=== PATIENT | female | born 1990 | race American Indian/Alaskan Native ===

== ENCOUNTER 2019-05-07 18:51 | Emergency (ER) | payer MEDICAID | END 2019-05-07 19:00 | disposition left against medical advice (07) | LOC: ED 18:51 | DX: N93.9 Abnormal uterine and vaginal bleeding, unspecified (principal); Z53.21 Procedure and treatment not carried out due to patient leaving prior to being seen by health care provider ==

== ENCOUNTER 2019-05-08 09:16 | Emergency (ER) | payer MEDICAID ==
[2019-05-08 09:27] VITALS: BP 132/79
[2019-05-08] MEDS ORDERED: SODIUM CHLORIDE 0.9% 1000 ML 1,000 ML IV ONE (09:49)
[2019-05-08] MEDS ORDERED: ACETAMINOPHEN 325 MG TAB PO ONE (09:49)
--- NOTE | 2019-05-08 09:55 | Emergency Department Report ---
ED Female HPI - General Chief complaint: Vaginal Bleeding Stated complaint: 8WKS HEAVY BLEEDING/CRAMPS Time Seen by Provider: 05/08/19 09:36 Source: patient Mode of arrival: Ambulatory Limitations: No Limitations - History of Present Illness Initial comments: Patient complains of vaginal spotting which started yesterday. She also complained of left lower quadrant abdominal cramping. She has a history of ectopic which was treated with surgery in 2002. 5, para 2, 1 and 1 ectopic . She denies any other past medical history. She denies nausea, vomiting, diarrhea, fever or chills. She also denies chest pain or shortness of breath. She sexually active with one partner and denies any history of sexually transmitted infection. Patient said she is about 8 weeks . MD Complaint: vaginal bleeding -: Sudden (yesterday) Location: perineum Radiation: LLQ Severity: mild Severity scale (0 -10): 2 Quality: cramping Consistency: constant Improves with: none Worsens with: none Are you Now?: Yes (8 weeks .) Associated Symptoms: vaginal bleeding - Related Data Sexually active: Yes : 5 Para: 2 A: 2 Previous Rx's Medication Instructions Recorded Last Taken Type Acetaminophen [Tylenol] 500 mg PO Q6HR PRN #20 tablet 05/08/19 Unknown Rx Allergies Allergy/AdvReac Type Severity Reaction Status Date / Time No Known Allergies Allergy Unverified 05/08/19 09:23 ED Review of Systems ROS: Stated complaint: 8WKS HEAVY BLEEDING/CRAMPS Other details as noted in HPI Comment: All other systems reviewed and negative Constitutional: denies: chills, fever Eyes: denies: eye pain, eye discharge, vision change ENT: denies: ear pain, throat pain Respiratory: denies: cough, shortness of breath, wheezing Cardiovascular: denies: chest pain, palpitations Endocrine: no symptoms reported Gastrointestinal: abdominal pain (LLQ). denies: nausea, diarrhea Genitourinary: other (Vaginal spotting.). denies: urgency, dysuria, discharge Musculoskeletal: denies: back pain, joint swelling, arthralgia Skin: denies: rash, lesions Neurological: denies: headache, weakness, paresthesias Psychiatric: denies: anxiety, depression Hematological/Lymphatic: denies: easy bleeding, easy bruising ED Past Medical Hx - Past Medical History Previous Medical History?: No - Surgical History Additional Surgical History: ecotopic - Social History Smoking Status: Never Smoker Substance Use Type: None - Medications Home Medications: Home Medications Medication Instructions Recorded Confirmed Last Taken Type Acetaminophen [Tylenol] 500 mg PO Q6HR PRN #20 tablet 05/08/19 Unknown Rx ED Physical Exam - General Limitations: No Limitations General appearance: alert, in no apparent distress - Head Head exam: Present: atraumatic, normocephalic - Eye Eye exam: Present: normal appearance, PERRL - ENT ENT exam: Present: normal exam, normal orophraynx, mucous membranes moist - Neck Neck exam: Present: normal inspection - Respiratory Respiratory exam: Present: normal lung sounds bilaterally. Absent: respiratory distress - Cardiovascular Cardiovascular Exam: Present: regular rate, normal rhythm. Absent: systolic murmur, diastolic murmur, rubs, gallop - GI/Abdominal GI/Abdominal exam: Present: soft, tenderness (Mild LLQ tenderness to palpation.), normal bowel sounds. Absent: guarding, rebound - Rectal Rectal exam: Present: deferred - External exam: Present: normal external exam, bleeding. Absent: lacerations Speculum exam: Present: vaginal bleeding. Absent: vaginal discharge, foreign body, tissue, laceration Bi-manual exam: Present: adnexal tenderness (left adnexal tenderness.), other (radha carrillo was Ms. Malick RN..). Absent: cervical motion tendernes, adnexal mass, uterine enlargement, uterine tenderness - Extremities Exam Extremities exam: Present: normal inspection - Back Exam Back exam: Present: normal inspection - Neurological Exam Neurological exam: Present: alert, oriented X3 - Psychiatric Psychiatric exam: Present: normal affect, normal mood - Skin Skin exam: Present: warm, dry, intact, normal color. Absent: rash ED Course Vital Signs 05/08/19 09:23 Temperature 98.2 F Pulse Rate 74 Respiratory 18 Rate Blood Pressure 132/79 O2 Sat by Pulse 100 Oximetry - Reevaluation(s) Reevaluation #1: 05/08/19 14:01 Patient has no new complaints I explained her lab results and ultrasound results and the need for her to follow up with Dr. David Hinojosa [facility] tomorrow robin harding for the repeat of her beta HCG quantitative. I also advised her to return to the emergency room on Thursday which in in 2 days time if she is unable to follow up with an [facility] for a repeat of beta-HCG quantitative. - Consultations Consultation #1: 05/08/19 13:59 I called and spoke with the [facility] on-call Dr. David Hinojosa. he recommended discharging patient home to follow-up with him in his [facility] clinic tomorrow and he will follow-up on repeating her beta quantitative in his office tomorrow. ED Medical Decision Making - Lab Data Result diagrams: 05/08/19 09:56 05/08/19 11:36 Lab Results 05/08/19 05/08/19 05/08/19 Range/Units 09:56 09:56 09:56 WBC 10.9 (4.5-11.0) K/mm3 RBC 4.63 (3.65-5.03) M/mm3 Hgb 12.0 (10.1-14.3) gm/dl Hct 36.3 (30.3-42.9) % MCV 79 (79-97) fl MCH 26 L (28-32) pg MCHC 33 (30-34) % RDW 15.6 H (13.2-15.2) % Plt Count 270 (140-440) K/mm3 Lymph % (Auto) 28.4 (13.4-35.0) % [place] % (Auto) 5.2 (0.0-7.3) % Eos % (Auto) 2.1 (0.0-4.3) % Baso % (Auto) 0.5 (0.0-1.8) % Lymph # 3.1 (1.2-5.4) K/mm3 [place] # 0.6 (0.0-0.8) K/mm3 Eos # 0.2 (0.0-0.4) K/mm3 Baso # 0.1 (0.0-0.1) K/mm3 Seg Neutrophils % 63.8 (40.0-70.0) % Seg Neutrophils # 7.0 (1.8-7.7) K/mm3 PT 12.5 (12.2-14.9) Sec. INR 0.96 (0.87-1.13) APTT 27.2 (24.2-36.6) Sec. Sodium (137-145) mmol/L Potassium (3.6-5.0) mmol/L Chloride (98-107) mmol/L Carbon Dioxide (22-30) mmol/L Anion Gap mmol/L BUN (7-17) mg/dL Creatinine (0.7-1.2) mg/dL Estimated GFR ml/min BUN/Creatinine Ratio % Glucose (65-100) mg/dL Calcium (8.4-10.2) mg/dL Total Bilirubin (0.1-1.2) mg/dL AST (5-40) units/L ALT (7-56) units/L Alkaline Phosphatase (35-129) units/L Total Protein (6.3-8.2) g/dL Albumin (3.9-5) g/dL Albumin/Globulin Ratio % HCG, Quant 541.5 H (0-4) mIU/mL Urine Color (Yellow) Urine Turbidity (Clear) Urine pH (5.0-7.0) Ur Specific [place] (1.003-1.030) Urine Protein (Negative) mg/dL Urine Glucose (UA) (Negative) mg/dL Urine Ketones (Negative) mg/dL Urine Blood (Negative) Urine Nitrite (Negative) Urine Bilirubin (Negative) Urine Urobilinogen (<2.0) mg/dL Ur Leukocyte Esterase (Negative) Urine WBC (Auto) (0.0-6.0) /HPF Urine RBC (Auto) (0.0-6.0) /HPF U Epithel Cells (Auto) (0-13.0) /HPF Urine Bacteria (Auto) (Negative) /HPF Urine Mucus /HPF Urine HCG, Qual (Negative) Blood Type 05/08/19 05/08/19 05/08/19 Range/Units 09:56 10:15 11:36 WBC (4.5-11.0) K/mm3 RBC (3.65-5.03) M/mm3 Hgb (10.1-14.3) gm/dl Hct (30.3-42.9) % MCV (79-97) fl MCH (28-32) pg MCHC (30-34) % RDW (13.2-15.2) % Plt Count (140-440) K/mm3 Lymph % (Auto) (13.4-35.0) % [place] % (Auto) (0.0-7.3) % Eos % (Auto) (0.0-4.3) % Baso % (Auto) (0.0-1.8) % Lymph # (1.2-5.4) K/mm3 [place] # (0.0-0.8) K/mm3 Eos # (0.0-0.4) K/mm3 Baso # (0.0-0.1) K/mm3 Seg Neutrophils % (40.0-70.0) % Seg Neutrophils # (1.8-7.7) K/mm3 PT (12.2-14.9) Sec. INR (0.87-1.13) APTT (24.2-36.6) Sec. Sodium 137 (137-145) mmol/L Potassium 3.7 (3.6-5.0) mmol/L Chloride 101.2 (98-107) mmol/L Carbon Dioxide 23 (22-30) mmol/L Anion Gap 17 mmol/L BUN 10 (7-17) mg/dL Creatinine 0.7 (0.7-1.2) mg/dL Estimated GFR > 60 ml/min BUN/Creatinine Ratio 14 % Glucose 106 H (65-100) mg/dL Calcium 8.3 L (8.4-10.2) mg/dL Total Bilirubin 0.20 (0.1-1.2) mg/dL AST 12 (5-40) units/L ALT 7 (7-56) units/L Alkaline Phosphatase 39 (35-129) units/L Total Protein 6.7 (6.3-8.2) g/dL Albumin 3.9 (3.9-5) g/dL Albumin/Globulin Ratio 1.4 % HCG, Quant (0-4) mIU/mL Urine Color Yellow (Yellow) Urine Turbidity Clear (Clear) Urine pH 6.0 (5.0-7.0) Ur Specific [place] 1.024 (1.003-1.030) Urine Protein <15 mg/dl (Negative) mg/dL Urine Glucose (UA) Neg (Negative) mg/dL Urine Ketones Neg (Negative) mg/dL Urine Blood Lg (Negative) Urine Nitrite Neg (Negative) Urine Bilirubin Neg (Negative) Urine Urobilinogen < 2.0 (<2.0) mg/dL Ur Leukocyte Esterase Neg (Negative) Urine WBC (Auto) < 1.0 (0.0-6.0) /HPF Urine RBC (Auto) 2.0 (0.0-6.0) /HPF U Epithel Cells (Auto) 5.0 (0-13.0) /HPF Urine Bacteria (Auto) 1+ (Negative) /HPF Urine Mucus 1+ /HPF Urine HCG, Qual Positive A (Negative) Blood Type B POSITIVE - Radiology Data Radiology results: report reviewed Transvaginal ultrasound showed no IUP. The radiologist recommended repeating the beta-hCG and a couple of days. Critical care attestation.: If time is entered above; I have spent that time in minutes in the direct care of this critically ill patient, excluding procedure time. ED Disposition Clinical Impression: Threatened in early , Vaginal bleeding affecting early Disposition: DC-01 TO HOME OR SELFCARE Is pt being admited?: No Does the pt Need Aspirin: No Condition: Stable Instructions: Threatened Miscarriage (ED) Additional Instructions: Please follow up with Dr. David AVILA tomorrow morning in his office for the repeats of your beta HCG quantitative. Return to the emergency room if her condition worsens or if you having severe abdominal pain or severe vaginal bleeding. Prescriptions: Acetaminophen [Tylenol] 500 mg PO Q6HR PRN #20 tablet PRN Reason: Pain , Severe (7-10) Referrals: PRIMARY CAREMD [Primary Care Provider] - 3-5 Days DAVID HINOJOSA MD [Staff Physician] - 3-5 Days Forms: Work/School Release Form(ED)
[2019-05-08 10:29] LABS: Basophils # (Auto) 0.1 K/mm3 (0.0-0.1); Basophils % (Auto) 0.5 % (0.0-1.8); Eosinophils # (Auto) 0.2 K/mm3 (0.0-0.4); Eosinophils % (Auto) 2.1 % (0.0-4.3); Hematocrit 36.3 % (30.3-42.9); Lymphocytes # (Auto) 3.1 K/mm3 (1.2-5.4); Lymphocytes % (Auto) 28.4 % (13.4-35.0); Mean Corpuscular HGB Conc 33 % (30-34); Mean Corpuscular Volume 79 fl (79-97); Monocytes # (Auto) 0.6 K/mm3 (0.0-0.8); Monocytes % (Auto) 5.2 % (0.0-7.3); Platelet Count 270 K/mm3 (140-440); Red Blood Count 4.63 M/mm3 (3.65-5.03); Red Cell Distribution Width 15.6 % (13.2-15.2)
[2019-05-08 10:40] LABS: INR 0.96 (0.87-1.13)
[2019-05-08 10:41] LABS: Partial Thromboplastin Time 27.2 Sec. (24.2-36.6)
[2019-05-08 10:52] LABS: Bacteria,Urine 1+ /HPF (Negative); Bilirubin,Urine NEG (Negative); Blood,Urine LG (Negative); Color,Urine Yellow (Yellow); Mucus,Urine 1+ /HPF; Protein,Urine <15 mg/dL mg/dL (Negative); Urobilinogen,Urine < 2.0 mg/dL (<2.0); WBC,Urine < 1.0 /HPF (0.0-6.0)
[2019-05-08 10:59] LABS: HCG Qualitative,Urine Positive (Negative)
[2019-05-08 12:39] LABS: Alanine Aminotransferase 7 units/L (7-56); Albumin 3.9 g/dL (3.9-5); BUN/Creatinine Ratio 14; Blood Urea Nitrogen 10 mg/dL (7-17); Calcium 8.3 mg/dL (8.4-10.2); Hemolysis Index 8
--- NOTE | 2019-05-08 13:14 | Ultrasound Report ---
ULTRASOUND OBSTETRIC INDICATION / CLINICAL INFORMATION: Vaginal bleeding. History of prior ectopic TECHNIQUE: Transabdominal and Transvaginal. Duplex ultrasound with spectral technique of both ovaries COMPARISON: None available. FINDINGS: No IUP visualized on the transabdominal or transvaginal images. The endometrial stripe is slightly he terogeneous and thickened measuring 12 mm in thickness. A 1.2 x 1.1 x 1.2 cm uterine leiomyoma seen w ithin the uterine fundus. ADNEXA: Right ovary measures 3.4 x 2.0 x 2.9 cm. Small hyperechoic right ovarian lesion measures 1.9 x 1.3 x 1.5 cm and appears solid with increased blood flow within it. Left ovary measures 2.3 x 1.5 x 1.8 cm without cyst or mass. FREE FLUID: Trace amount of free fluid within the pelvic cul-de-sac ADDITIONAL FINDINGS: Normal color Doppler and spectral waveforms are present within both ovaries with out sonographic evidence for torsion. IMPRESSION: 1. No IUP visualized. Slightly heterogeneous endometrial stripe likely secondary to recent miscarriag e. Please confirm with follow-up beta hCG and short-term ultrasound in order to completely exclude no nvisualized early IUP or ectopic. 2. Small solid 1.9 cm right ovarian mass. 3. Leiomyomatous uterus Signer Name: Joss Sen MD Signed: 05/08/2019 1:09 PM Workstation Name: [id number]
== END 2019-05-08 14:29 | disposition home or self-care (01) ==
LOC: ED 09:16
DX: O20.0 Threatened abortion (principal); Z3A.08 8 weeks gestation of pregnancy
CPT/HCPCS: 36415; 76801; 76817; 80053; 81001; 81025; 84702; 85025; 85610; 85730; 86900; 86901; 87210; 87591; 96360; 96361; 99285; J7030